=== PATIENT | female | born 1970 | race Caucasian/White ===

== ENCOUNTER 2018-06-01 21:21 | Emergency (ER) | payer OTHER ==
[2018-06-01] MEDS ORDERED: NS 1,000 ML IV ONE (22:08)
[2018-06-01] MEDS ORDERED: MECLIZINE HCL 25 MG TAB PO ONE (22:26)
--- NOTE | 2018-06-01 22:27 | EDPHY ---
H & P Stated Complaint: syncope vertigo sx Time Seen by Provider: 06/01/18 22:00 HPI/ROS: HPI The patient presents with syncopal episode followed by vertigo. At about 6 or 7 :00 p.m. trina, patient was at an acquaintance is house, standing at a bar. She felt a twinge of pain in her neck and then quickly lost consciousness falling back and hitting her head on a hardwood floor. She had a 10-20 second loss of consciousness, when she woke she was not drowsy and alert. However, she was unable to stand because of severe dizziness. She had to lie on the ground for about 1 hr until she was able to slowly make her way up to a chair. She feels as if the room is spinning and less she looks straight forward and does not move her head. She waited for her symptoms to improve, however they did not so several hours later a friend brought her into the emergency department. She is currently experiencing a headache which is diffuse, bifrontal, aching in nature. She is able to walk if she does not move her head much. She has mild nausea when the dizziness is severe. She has a similar episode several years ago.. REVIEW OF SYSTEMS 10 systems were reviewed and negative with the exception of the elements mentioned in the history of present illness. 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 PHYSICAL General Appearance: Alert, no distress Eyes: Pupils equal and round no pallor or injection Head: There is an area of tenderness in her posterior occiput without any hematoma or abrasion visualized ENT, Mouth: Mucous membranes moist Respiratory: There are no retractions, lungs are clear to auscultation Cardiovascular: Regular rate and rhythm Gastrointestinal: Abdomen is soft and non-tender, no masses, bowel sounds normal Neurological: A&O, moving her head in any direction induces vertigo, cranial nerves 2-12 intact, 5/5 strength in upper extremities with no pronator drift, normal finger to nose and heel to kim testing Skin: Warm and dry, no rashes Musculoskeletal: Neck is supple non tender Extremities: symmetrical, full range of motion Psychiatric: Patient is oriented X 3, there is no agitation Source: Patient Exam Limitations: No limitations - Personal History LMP (Females 10-55): 15-21 Days Ago Current Tetanus/Diphtheria Vaccine: Unsure Current Tetanus Diphtheria and Acellular Pertussis (TDAP): Unsure - Medical/Surgical History Hx Asthma: No Hx Chronic Respiratory Disease: No Hx Diabetes: No Hx Cardiac Disease: No Hx Renal Disease: No Hx Cirrhosis: No Hx Alcoholism: No Hx HIV/AIDS: No Hx Splenectomy or Spleen Trauma: No - Social History Smoking Status: Never smoked Constitutional: Initial Vital Signs Temperature (C) 36.7 C 06/01/18 21:26 Heart Rate 66 06/01/18 21:26 Respiratory Rate 18 06/01/18 21:26 Blood Pressure 124/72 H 06/01/18 21:26 O2 Sat (%) 96 06/01/18 21:26 O2 Delivery Mode Room Air Allergies/Adverse Reactions: gluten Allergy (Verified 06/01/18 21:25) levofloxacin [From Levaquin] Allergy (Verified 06/01/18 21:25) Home Medications: Medication Instructions Recorded Vitamin D2 06/01/18 Medical Decision Making - Diagnostics EKG Interpretation: EKG: Complete interpretation has been separately recorded in the [facility] archive. Summary impression: Normal sinus rhythm, Pac present Imaging Results: Imaging Impressions Head CTA 06/01/18 22:23 Impression: Negative CT angiography of the neck with no arterial occlusive disease identified. CT Angiography of the Head With Attention to the [place] Reason for examination: Vertigo; evaluate for arterial occlusive disease or dissection. Technique: A spiral acquisition was performed from the base of the brain to the vertex during rapid intravenous administration of 75 mL of Isovue-370. This contrast volume was utilized for evaluation of the neck and head. Axial images are obtained at 0.6 mm thickness and the examination is reviewed on the workstation in multiple window and level settings. Sagittal and coronal reformats are performed and three-dimensional reformations are performed by the radiologist on the workstation. Dose reduction techniques were utilized. Findings: There is excellent arterial opacification. The great vessels at the base of the brain are normal in appearance. The anterior and middle cerebral arteries appear normal. The [place] is intact with both anterior and posterior communicating arteries identified. The basilar artery as well as posterior cerebral arteries are normal. No regions of stenosis are identified. No hemorrhages are seen and no vascular malformations are identified. No areas of abnormal perfusion are identified and there are no findings to suggest cortical ischemia. Impression: Normal CT angiography of the head with attention to the great vessels of the [place]. Specifically negative for arterial occlusive disease or dissection. Note: All stenoses are calculated using NASCET Criteria. Results called and discussed with Cinthia Sanford MD on 06/01/2018 at 23:42. Neck CTA 06/01/18 22:23 Impression: Negative CT angiography of the neck with no arterial occlusive disease identified. CT Angiography of the Head With Attention to the [place] Reason for examination: Vertigo; evaluate for arterial occlusive disease or dissection. Technique: A spiral acquisition was performed from the base of the brain to the vertex during rapid intravenous administration of 75 mL of Isovue-370. This contrast volume was utilized for evaluation of the neck and head. Axial images are obtained at 0.6 mm thickness and the examination is reviewed on the workstation in multiple window and level settings. Sagittal and coronal reformats are performed and three-dimensional reformations are performed by the radiologist on the workstation. Dose reduction techniques were utilized. Findings: There is excellent arterial opacification. The great vessels at the base of the brain are normal in appearance. The anterior and middle cerebral arteries appear normal. The [place] is intact with both anterior and posterior communicating arteries identified. The basilar artery as well as posterior cerebral arteries are normal. No regions of stenosis are identified. No hemorrhages are seen and no vascular malformations are identified. No areas of abnormal perfusion are identified and there are no findings to suggest cortical ischemia. Impression: Normal CT angiography of the head with attention to the great vessels of the [place]. Specifically negative for arterial occlusive disease or dissection. Note: All stenoses are calculated using NASCET Criteria. Results called and discussed with Cinthia Sanford MD on 06/01/2018 at 23:42. Head CT 06/01/18 22:27 Impression: Negative noncontrast CT of the head. Results called and discussed with Cinthia Sanford MD on 06/01/2018 at 23:32. Imaging: Discussed imaging studies w/ sales assistant institutional sales Radiologist Differential Diagnosis: 47-year-old relatively healthy female presents with an episode of neck pain, followed quickly by syncope, after her syncopal episode, developing severe vertigo. Here, vital signs are normal, neurologic exam is unremarkable without any nystagmus, however when she moves in any direction she is limited by severe dizziness. Differential diagnosis includes vertebral artery dissection, concussion, intracranial hemorrhage. In the emergency department, patient received IV fluids and meclizine. She felt better after receiving the above treatments. Labs were unremarkable. Patient underwent CT angio of head and neck which was unremarkable. I suspect she had a vasovagal event related to the degree of neck pain that she was having. After hitting her head, she is likely developed a concussion causing her headache and dizziness. I will send her home with concussion precautions as well as recommendation for meclizine. She is happy with this plan. - Data Points Laboratory Results: Laboratory Results 06/01/18 21:49 06/01/18 21:49 06/01/18 06/01/18 21:49 21:49 WBC 10.75 10^3/uL H 10^3/uL (3.80-9.50) RBC 4.17 10^6/uL L 10^6/uL (4.18-5.33) Hgb 12.5 g/dL L g/dL (12.6-16.3) Hct 37.5 % L % (38.0-47.0) MCV 89.9 fL fL (81.5-99.8) MCH 30.0 pg pg (27.9-34.1) MCHC 33.3 g/dL g/dL (32.4-36.7) RDW 13.0 % % (11.5-15.2) Plt Count 293 10^3/uL 10^3/uL (150-400) MPV 10.5 fL fL (8.7-11.7) Neut % (Auto) 84.2 % H % (39.3-74.2) Lymph % (Auto) 8.4 % L % (15.0-45.0) [place] % (Auto) 6.2 % % (4.5-13.0) Eos % (Auto) 0.2 % L % (0.6-7.6) Baso % (Auto) 0.5 % % (0.3-1.7) Nucleat RBC Rel Count 0.0 % % (0.0-0.2) Absolute Neuts (auto) 9.06 10^3/uL H 10^3/uL (1.70-6.50) Absolute Lymphs (auto) 0.90 10^3/uL L 10^3/uL (1.00-3.00) Absolute Monos (auto) 0.67 10^3/uL 10^3/uL (0.30-0.80) Absolute Eos (auto) 0.02 10^3/uL L 10^3/uL (0.03-0.40) Absolute Basos (auto) 0.05 10^3/uL 10^3/uL (0.02-0.10) Absolute Nucleated RBC 0.00 10^3/uL 10^3/uL (0-0.01) Immature Gran % 0.5 % % (0.0-1.1) Immature Gran # 0.05 10^3/uL 10^3/uL (0.00-0.10) Sodium 134 mEq/L L mEq/L (135-145) Potassium 3.8 mEq/L mEq/L (3.5-5.2) Chloride 100 mEq/L mEq/L (97-110) Carbon Dioxide 24 mEq/l mEq/l (22-31) Anion Gap 10 mEq/L mEq/L (6-14) BUN 16 mg/dL mg/dL (7-23) Creatinine 0.7 mg/dL mg/dL (0.6-1.0) Estimated GFR > 60 Glucose 99 mg/dL mg/dL (70-100) Calcium 9.4 mg/dL mg/dL (8.5-10.4) Medications Given: Discontinued Medications Sodium Chloride (Ns) 1,000 mls @ 0 mls/hr IV ONCE ONE; Wide Open PRN Reason: Protocol Stop: 06/01/18 22:09 Last Admin: 06/01/18 22:09 Dose: 1,000 mls Ibuprofen (Motrin) 400 mg PO ONCE ONE Stop: 06/01/18 22:46 Last Admin: 06/01/18 22:47 Dose: 400 mg Meclizine HCl (Meclizine Hcl) 25 mg PO EDNOW ONE Stop: 06/01/18 22:27 Last Admin: 06/01/18 22:47 Dose: 25 mg Departure - Departure Disposition: Home, Routine, Self-Care Clinical Impression: Vertigo Syncope Qualifiers: Syncope type: unspecified Qualified Code(s): R55 - Syncope and collapse Head injury Qualifiers: Encounter type: initial encounter Qualified Code(s): S09.90XA - Unspecified injury of head, initial encounter Condition: Good Instructions: Vertigo (ED), Concussion (ED) Additional Instructions: I recommend that you take it easy and rest until your headache and dizziness improves. You can take ibuprofen 400 mg every 6 hr as needed for any headache. If you continue to have symptoms for more than a day or 2, I recommend that you follow up with your primary care doctor. You can take meclizine which is available [id number] for dizziness if you would like. Referrals: JORDAN NORMAN NP [Primary Care Provider] - As per Instructions
[2018-06-01] MEDS ORDERED: IOPAMIDOL (ISOVUE 370) 100 ML BTL IV ONE (22:31)
[2018-06-01 22:34] LABS: PLATELET COUNT 293 10^3/uL (150-400)
[2018-06-01] MEDS ORDERED: IBUPROFEN 200 MG TAB PO ONE (22:45)
[2018-06-01 23:44] VITALS: BP 94/66
--- NOTE | 2018-06-02 04:35 | CPEKG ---
Test Reason : OPEN Blood Pressure : / mmHG Vent. Rate : 053 BPM Atrial Rate : 054 BPM P-R Int : 152 ms QRS Dur : 100 ms QT Int : 431 ms P-R-T Axes : 015 057 060 degrees QTc Int : 405 ms Sinus rhythm Atrial premature complexes Minimal ST elevation, anterior leads Confirmed by Cinthia Sanford ([id number]) on 06/02/2018 4:35:03 AM Referred By: PHYSICIAN ED Confirmed By:Cinthia Sanford
== END 2018-06-02 00:23 | disposition home or self-care (01) ==
DX: R42 Dizziness and giddiness (principal); R55 Syncope and collapse; E86.9 Volume depletion, unspecified
CPT/HCPCS: Q9967